=== PATIENT | female | born 1935 | race Caucasian/White ===

== ENCOUNTER 2016-11-20 13:59 | Emergency (ER) | payer OTHER ==
[~2016-11-20] VITALS: Ht 144.8 cm; Wt 47.6 kg
[~2016-11-20 13:59] MED LIST: ACYC800T PO; ATEN-41 PO; ATEN50TA PO; GABA-531 PO; GLUXR500 PO; GLYB5TAB7 PO; HYDR-1189 PO; LEVO50TA77 PO; LIDP TP; LOSA25TA3 PO; METF-510 PO; NIFE60TA83 PO; ONDA4TAB5 PO; TEMA15CA51 PO; VALA500T PO
[2016-11-20 14:10] VITALS: BP_SYST 138
[2016-11-20 17:45] VITALS: BP_SYST 126
== END 2016-11-20 17:45 | disposition home or self-care (01) ==
LOC: SED 13:59
DX: S40.011A Contusion of right shoulder, initial encounter (principal); E11.9 Type 2 diabetes mellitus without complications; I10 Essential (primary) hypertension; W18.30XA Fall on same level, unspecified, initial encounter; Y93.89 Activity, other specified; Y92.89 Other specified places as the place of occurrence of the external cause; Y99.8 Other external cause status
CPT/HCPCS: 73030; 82962; 99284

== ENCOUNTER 2017-03-06 10:54 | Emergency (ER) | payer OTHER ==
[~2017-03-06] VITALS: Ht 134.6 cm; Wt 47.2 kg
[2017-03-06 10:54] VITALS: BP_SYST 216
[2017-03-06] MEDS ORDERED: hydrALAZINE HCL 20 MG/ML VIAL IVP ONE (12:45)
[2017-03-06 13:06] LABS: BASOPHILS % (AUTO) 0.4 % (0.0-2.0); EOSINOPHILS # (AUTO) 0.1 K/uL (0.0-0.4); EOSINOPHILS % (AUTO) 0.8 % (0.0-4.0); HEMATOCRIT 41.5 % (36-48); HEMOGLOBIN 13.7 g/dL (12.0-16.0); LYMPHOCYTES # (AUTO) 1.9 K/uL (1.0-5.5); LYMPHOCYTES % (AUTO) 25.8 % (20.5-51.5); MEAN CORPUSCULAR HEMOGLOBIN 31 pg (27-31); MEAN CORPUSCULAR HGB CONC 33 % (32-36); MEAN CORPUSCULAR VOLUME 94 fL (79.0-98.0); MONOCYTES # (AUTO) 0.3 K/uL (0.0-1.0); MONOCYTES % (AUTO) 4.2 % (1.7-9.3); NEUTROPHILS % (AUTO) 68.8 % (40.0-70.0); PLATELET COUNT (AUTO) 294 K/uL (130-430); RED BLOOD CELL COUNT(AUTO) 4.41 MIL/uL (4.2-6.2); RED CELL DISTRIBUTION WIDTH 12.9 % (9.0-15.0); WHITE BLOOD COUNT (AUTO) 7.3 K/uL (4.8-10.8)
[2017-03-06 13:16] LABS: ANION GAP 9 (5-15); CALCIUM 10.3 mg/dL (8.4-11.0); CHLORIDE 104 mmol/L (98-107); CREATININE 0.73 mg/dL (0.55-1.30); GLUCOSE 189 mg/dL (70-99); POTASSIUM 4.4 mmol/L (3.5-5.1); SODIUM SERUM 140 mmol/L (136-145); UREA NITROGEN, BLOOD 13 mg/dL (8-21)
[2017-03-06 13:25] LABS: ALANINE AMINOTRANSFERASE 18 U/L (12-78); ALBUMIN 3.7 g/dL (3.4-4.8); ASPARTATE AMINOTRANSFERASE 18 U/L (10-37); TOTAL BILIRUBIN 0.6 mg/dL (0.0-1.0)
[2017-03-06 15:45] VITALS: BP_SYST 160
== END 2017-03-06 15:45 | disposition home or self-care (01) ==
LOC: SED 10:54
DX: I10 Essential (primary) hypertension (principal); E11.9 Type 2 diabetes mellitus without complications; E78.5 Hyperlipidemia, unspecified; Z86.79 Personal history of other diseases of the circulatory system; Z91.041 Radiographic dye allergy status; Z79.899 Other long term (current) drug therapy
CPT/HCPCS: 36415; 70450; 80053; 82962; 83880; 84484; 85025; 93005; 96374; 99285; J0360

== ENCOUNTER 2023-01-04 09:04 | Inpatient (IN) | payer OTHER ==
[~2023-01-04] VITALS: Ht 154.9 cm; Wt 44.5 kg
[~2023-01-04 09:04] MED LIST changes: +ACYC-133 PO; -ACYC800T PO; -HYDR-1189 PO; +HYDR-3919 PO; -LEVO50TA77 PO; -METF-510 PO; +METF-518 PO; +SYN50 PO; +TEMA15CA5 PO; -TEMA15CA51 PO
[2023-01-04 09:15] VITALS: BP_SYST 198; PULSE 75; RESP 19; TEMP 98; O2SAT 97
[2023-01-04 09:52] LABS: BASOPHILS % (AUTO) 0.4 % (0.0-2.0); EOSINOPHILS % (AUTO) 0.1 % (0.0-4.0); HEMATOCRIT 40.2 % (36-48); HEMOGLOBIN 13.6 g/dL (12.0-16.0); LYMPHOCYTES # (AUTO) 2.4 K/uL (1.0-5.5); LYMPHOCYTES % (AUTO) 22.8 % (20.5-51.5); MEAN CORPUSCULAR HEMOGLOBIN 30 pg (27-31); MEAN CORPUSCULAR HGB CONC 34 % (32-36); MEAN CORPUSCULAR VOLUME 89 fL (79.0-98.0); MONOCYTES # (AUTO) 0.6 K/uL (0.0-1.0); MONOCYTES % (AUTO) 5.7 % (1.7-9.3); NEUTROPHILS # (AUTO) 7.5 K/uL (1.8-7.7); PLATELET COUNT (AUTO) 192 K/uL (130-430); RED BLOOD CELL COUNT(AUTO) 4.54 MIL/uL (4.2-6.2); RED CELL DISTRIBUTION WIDTH 13.1 % (9.0-15.0); WHITE BLOOD COUNT (AUTO) 10.5 K/uL (4.8-10.8)
[2023-01-04 10:07] LABS: ANION GAP 14 (5-15); CALCIUM 10.3 mg/dL (8.4-11.0); CARBON DIOXIDE 25 mmol/L (23-29); CHLORIDE 94 mmol/L (98-107); GLUCOSE 200 mg/dL (74-106); POTASSIUM 4.1 mmol/L (3.5-5.1); SODIUM SERUM 133 mmol/L (136-145); UREA NITROGEN, BLOOD 18 mg/dL (8-21)
[2023-01-04 10:12] LABS: ALANINE AMINOTRANSFERASE 10 U/L (12-78); ASPARTATE AMINOTRANSFERASE 16 U/L (10-37); TOTAL BILIRUBIN 0.8 mg/dL (0.0-1.0); TOTAL PROTEIN, SERUM 8.5 g/dL (6.4-8.3)
[2023-01-04] MEDS ORDERED: ONDANSETRON HCL 4 MG/2 ML VIAL IVP ONE (11:15)
[2023-01-04] MEDS ORDERED: MORPHINE 4 MG INJ. 4 MG/ML VIAL IVP ONE (11:15)
[2023-01-04] MEDS ORDERED: GLIP5TAB26 PO (12:07)
[2023-01-04] MEDS ORDERED: METF-381 PO (12:07)
[2023-01-04 13:08] LABS: AMYLASE 53 U/L (0-100); LIPASE 108 U/L (73-393)
[2023-01-04 14:24] LABS: CLARITY/URINE CLEAR (CLEAR); COLOR,URINE YELLOW (YELLOW); GLUCOSE,URINE 2+ (NEGATIVE); PROTEIN URINE 3+ (NEGATIVE)
[2023-01-04 14:25] LABS: BILIRUBIN,URINE NEGATIVE (NEGATIVE); BLOOD, URINE NEGATIVE (NEGATIVE); KETONES,URINE 1+ (NEGATIVE); LEUKOCYTE ESTERASE ,URINE NEGATIVE (NEGATIVE); NITRITE, URINE NEGATIVE (NEGATIVE); UROBILINOGEN,URINE 0.2 (0.2-1.0)
[2023-01-04 14:26] LABS: BACTERIA,URINE RARE /HPF (None Seen); MUCUS,URINE None Seen /LPF (None Seen); RBC,URINE NONE SEEN /HPF (0-3); WBC,URINE 0-3 /HPF (0-3)
[2023-01-04] MEDS ORDERED: MILK OF MAGNESIA 30 ML UDC PO PRN (14:30)
[2023-01-04] MEDS ORDERED: BISACODYL 10 MG/SUPPOSITORY RC PRN (14:30)
[2023-01-04] MEDS ORDERED: D5/0.45 NS 1,000 ML IV SCH (14:45)
[2023-01-04] MEDS ORDERED: METOCLOPRAMIDE HCL 10 MG/2 ML VIAL IVP PRN (14:45)
[2023-01-04] MEDS ORDERED: DIPHENHYDRAMINE INJ 50 MG/ML VIAL IVP ONE (14:45)
[2023-01-04] MEDS ORDERED: POLYETHYLENE GLYCOL 3350, 17 GM/ POWD.PACK PO ONE (15:15)
[2023-01-04] MEDS: PIPERACILLIN/TAZO 3.375/DEX-IS 50 ML IV SCH ×2 (15:53→21:03)
[2023-01-04] MEDS: KCL 20 mEq in 0.45% NS 1000 mL 1,000 ML IV SCH (17:28)
[2023-01-04] MEDS ORDERED: PIPERACILLIN/TAZO 3.375/DEX-IS 50 ML IV SCH (18:00)
[2023-01-04 19:00] VITALS: BP_SYST 153; BP_SYST 167; PULSE 89; PULSE 91; RESP 14; RESP 16; TEMP 97.2; TEMP 97.3; O2SAT 93; O2SAT 94
[2023-01-04] MEDS ORDERED: PANTOPRAZOLE SODIUM 40 MG/VIAL (PROTONIX) IVP ONE (19:00)
[2023-01-04 20:00] VITALS: BP_SYST 153; PULSE 91; RESP 16; TEMP 97.2; O2SAT 93
[2023-01-05 00:11] VITALS: BP_SYST 158; PULSE 80; RESP 19; TEMP 99; O2SAT 96
[2023-01-05] MEDS: PIPERACILLIN/TAZO 3.375/DEX-IS 50 ML IV SCH ×4 (04:19→21:35)
[2023-01-05] MEDS: KCL 20 mEq in 0.45% NS 1000 mL 1,000 ML IV SCH ×2 (06:05→11:15)
[2023-01-05 08:00] VITALS: BP_SYST 164; PULSE 65; RESP 18; TEMP 97; O2SAT 100
[2023-01-05 08:01] LABS: BASOPHILS % (AUTO) 0.2 % (0.0-2.0); EOSINOPHILS % (AUTO) 0.6 % (0.0-4.0); HEMATOCRIT 35.9 % (36-48); LYMPHOCYTES # (AUTO) 1.4 K/uL (1.0-5.5); LYMPHOCYTES % (AUTO) 19.7 % (20.5-51.5); MEAN CORPUSCULAR HEMOGLOBIN 30 pg (27-31); MEAN CORPUSCULAR HGB CONC 33 % (32-36); MEAN CORPUSCULAR VOLUME 89 fL (79.0-98.0); MONOCYTES # (AUTO) 0.5 K/uL (0.0-1.0); MONOCYTES % (AUTO) 7.4 % (1.7-9.3); NEUTROPHILS % (AUTO) 72.1 % (40.0-70.0); PLATELET COUNT (AUTO) 162 K/uL (130-430); RED BLOOD CELL COUNT(AUTO) 4.03 MIL/uL (4.2-6.2); RED CELL DISTRIBUTION WIDTH 12.9 % (9.0-15.0); WHITE BLOOD COUNT (AUTO) 6.9 K/uL (4.8-10.8)
[2023-01-05] MEDS ORDERED: GASTROGRAFIN 120 ML ONE (08:03)
[2023-01-05 08:18] LABS: ALBUMIN 2.9 g/dL (3.4-4.8); ANION GAP 3 (5-15); ASPARTATE AMINOTRANSFERASE 15 U/L (10-37); CALCIUM 9.2 mg/dL (8.4-11.0); CARBON DIOXIDE 31 mmol/L (23-29); CHLORIDE 102 mmol/L (98-107); CREATININE 0.95 mg/dL (0.55-1.30); GLUCOSE 127 mg/dL (74-106); LIPASE 53 U/L (73-393); POTASSIUM 3.8 mmol/L (3.5-5.1); SODIUM SERUM 136 mmol/L (136-145); TOTAL BILIRUBIN 1.3 mg/dL (0.0-1.0); TOTAL PROTEIN, SERUM 6.4 g/dL (6.4-8.3); UREA NITROGEN, BLOOD 16 mg/dL (8-21)
[2023-01-05 08:24] LABS: PROTHROMBIN TIME 10.6 SECS (9.5-12.5)
[2023-01-05 08:47] LABS: ALANINE AMINOTRANSFERASE 7 U/L (12-78)
[2023-01-05] MEDS ORDERED: glipiZIDE XL 5 MG TAB ( GLUCOTROL XL) PO SCH (09:00)
[2023-01-05] MEDS: POLYETHYLENE GLYCOL 3350, 17 GM/ POWD.PACK PO SCH (09:00)
[2023-01-05] MEDS: PANTOPRAZOLE SODIUM 40 MG/VIAL (PROTONIX) IVP SCH (11:28)
[2023-01-05 11:30] VITALS: BP_SYST 176; PULSE 84; RESP 19; TEMP 98; O2SAT 100
[2023-01-05] MEDS: NIFEdipine 30 MG TAB.ER.24 PO SCH (13:16)
[2023-01-05] MEDS: ATENOLOL 50 MG TABLET (TENORMIN) PO SCH (13:17)
[2023-01-05 17:30] VITALS: BP_SYST 158; PULSE 72; RESP 18; TEMP 98.6; O2SAT 100
[2023-01-05 19:40] VITALS: O2SAT 100
[2023-01-05 20:00] VITALS: BP_SYST 154; PULSE 70; RESP 18; TEMP 97.9; O2SAT 100
[2023-01-06] VITALS: BP_SYST 140; PULSE 63; RESP 18; TEMP 98.4; O2SAT 100
[2023-01-06] MEDS: PIPERACILLIN/TAZO 3.375/DEX-IS 50 ML IV SCH ×2 (03:10→09:33)
[2023-01-06] MEDS: KCL 20 mEq in 0.45% NS 1000 mL 1,000 ML IV SCH ×2 (03:11→07:15)
[2023-01-06 06:10] LABS: BASOPHILS % (AUTO) 0.3 % (0.0-2.0); EOSINOPHILS # (AUTO) 0.2 K/uL (0.0-0.4); EOSINOPHILS % (AUTO) 4.3 % (0.0-4.0); HEMATOCRIT 31.1 % (36-48); HEMOGLOBIN 10.4 g/dL (12.0-16.0); LYMPHOCYTES # (AUTO) 1.4 K/uL (1.0-5.5); LYMPHOCYTES % (AUTO) 24.4 % (20.5-51.5); MEAN CORPUSCULAR HEMOGLOBIN 30 pg (27-31); MEAN CORPUSCULAR HGB CONC 34 % (32-36); MEAN CORPUSCULAR VOLUME 89 fL (79.0-98.0); MONOCYTES # (AUTO) 0.6 K/uL (0.0-1.0); MONOCYTES % (AUTO) 9.7 % (1.7-9.3); NEUTROPHILS # (AUTO) 3.5 K/uL (1.8-7.7); NEUTROPHILS % (AUTO) 61.3 % (40.0-70.0); PLATELET COUNT (AUTO) 139 K/uL (130-430); RED CELL DISTRIBUTION WIDTH 13.4 % (9.0-15.0); WHITE BLOOD COUNT (AUTO) 5.7 K/uL (4.8-10.8)
[2023-01-06 06:22] LABS: ANION GAP 6 (5-15); CALCIUM 9.2 mg/dL (8.4-11.0); CARBON DIOXIDE 27 mmol/L (23-29); CHLORIDE 105 mmol/L (98-107); CREATININE 0.65 mg/dL (0.55-1.30); GLUCOSE 167 mg/dL (74-106); SODIUM SERUM 138 mmol/L (136-145); UREA NITROGEN, BLOOD 9 mg/dL (8-21)
[2023-01-06 08:08] VITALS: BP_SYST 135; PULSE 68; RESP 18; TEMP 97.4
[2023-01-06 08:34] VITALS: O2SAT 99
[2023-01-06] MEDS: POLYETHYLENE GLYCOL 3350, 17 GM/ POWD.PACK PO SCH (09:35)
[2023-01-06] MEDS: PANTOPRAZOLE SODIUM 40 MG/VIAL (PROTONIX) IVP SCH (09:36)
[2023-01-06] MEDS: NIFEdipine 30 MG TAB.ER.24 PO SCH (09:36)
[2023-01-06] MEDS: ATENOLOL 50 MG TABLET (TENORMIN) PO SCH (09:37)
[2023-01-06 13:18] VITALS: BP_SYST 141; PULSE 61; RESP 18; TEMP 97.8; O2SAT 96
[2023-01-06] MEDS ORDERED: BISA-79 PO (13:22)
[2023-01-06] MEDS ORDERED: Bisacodyl Suppository RC (13:22)
== END 2023-01-06 17:00 | disposition home or self-care (01) | DRG 389 ==
LOC: SED 09:04 → STU 13:07 → SMU 01-05 15:02
PROVIDERS: ADMIT Specialist; ATTEND Specialist
DX: K56.609 Unspecified intestinal obstruction, unspecified as to partial versus complete obstruction (principal); E44.1 Mild protein-calorie malnutrition; Z68.1 Body mass index [BMI] 19.9 or less, adult; K57.30 Diverticulosis of large intestine without perforation or abscess without bleeding; I10 Essential (primary) hypertension; E11.9 Type 2 diabetes mellitus without complications; E78.5 Hyperlipidemia, unspecified; I25.10 Atherosclerotic heart disease of native coronary artery without angina pectoris; E03.9 Hypothyroidism, unspecified; D64.9 Anemia, unspecified; K59.00 Constipation, unspecified; I25.2 Old myocardial infarction; Z91.041 Radiographic dye allergy status; Z79.899 Other long term (current) drug therapy; Z90.710 Acquired absence of both cervix and uterus; Z90.49 Acquired absence of other specified parts of digestive tract
CPT/HCPCS: 36415; 74250-TC; 76376; 80048; 80053; 81000; 82150; 82962; 83605; 83690; 85025; 85610-TC; 87040; 96361; 96374; 96375; 99285; C9113; G0378; J1200; J2270; J2405; J2543; J2765; J3480; J7030; Q9963